=== PATIENT | male | born 1955 | race Caucasian/White ===

== ENCOUNTER → 2021-08-30 11:55 | Outpatient (BNVA) | payer MEDICARE, SELFPAY | PROVIDERS: PCP Nurse Practitioner Adult Health; Visit Provider Urology | DX: Z13.89 Encounter for screening for other disorder (principal) | CPT/HCPCS: Q3014 ==

== ENCOUNTER → 2023-02-07 14:38 | Outpatient (BNVA) | payer MEDICARE, MEDICAID, SELFPAY | PROVIDERS: PCP Nurse Practitioner Adult Health; Visit Provider Urology | DX: N52.01 Erectile dysfunction due to arterial insufficiency (principal); R39.15 Urgency of urination | CPT/HCPCS: 99212 ==

== ENCOUNTER 2024-11-12 10:16 | Outpatient (AMB) | payer MEDICARE, MEDICAID, SELFPAY ==
--- NOTE | 2024-11-12 10:20 | MHC.OFFVIS ---
Intake Visit Reasons: 1 yr follow up Intake Note: Patient is present for 1Y Follow up Current Urology Medication: Tadalafil ALLERGIES:NONE Blood Thinner: Apixaban ( Eliquis) Marketing Consultant Required: No Allergies No Known Allergies Allergy (Verified 11/12/24 10:21) HPI Comments Details: Alexis Root is a very pleasant male. He is a patient of Dr Dorman. He is seen in the office today for the following urologic conditions. - erectile dysfunction - urinary urgency and frequency Last seen 02/06/2023 New issue lower urinary tract symptoms Primarily urinary urge and frequency Has tried modifying diet Discussed bladder irritants Printed information provided Trial daily tadalafil Erectile dysfunction:? He presents today for?for continued evaluation and management of erectile dysfunction.? Symptoms have been present for/since?progressive.? Current treatment includes?Cialis/tadalafil - initially mail order from [facility], now through [facility] ? At this time he experiences erections?02/04 , are partial and adequate for vaginal penetration, that undergo rapid detumesence after penetration, HAKAN 8-11 Moderate ED.? Nocturnal erections?do not occur.? Currently they are?in a stable relationship.? Associated problems? hypertension ?Yes ? diabetes ?No ? dyslipidemia ?Yes ? Overall he is ?satisfied with the current management.? Therapeutic plan includes?continue dose of oral medication PFSH Medical History Abnormal heart rate Chronic cough Erectile dysfunction due to arterial insufficiency Urinary urgency Surgical History History of surgery Review of Systems Const Denies chills and Denies fever(s) Card Reports no additional complaints and Denies syncope Resp Denies cough GI Denies abdominal pain and Denies heartburn Reports as per HPI and Denies change in libido Neuro Denies syncope Psych Denies change in libido Endo Denies change in libido Physical Exam Const General: cooperative, healthy appearing, comfortable and no acute distress Orientation/consciousness: patient oriented x3 HEENT Face and sinus: Yes normal facial exam Mouth: moist mucous membranes Neck Neck: Yes normal visual inspection, Yes full ROM and Yes trachea midline Chest Chest palpation & inspection: normal inspection of the chest Resp Effort & Inspection: normal respiratory effort, able to speak in complete sentences and no respiratory distress GI Inspection: Yes normal to inspection Back/Spine/Pelvis Cervical Spine: normal cervical lordosis Thoracic/Lumbar Spine: thoracic and lumbar spine normal to inspection Skin General skin exam: no rashes or lesions noted Neuro General: patient oriented x3, gait normal, tone normal and moves all extremities Extrem General: Yes normal to inspection and Yes capillary refill normal Assessment & Plan Assessment & Plan (1) Erectile dysfunction due to arterial insufficiency: Code(s): N52.01 - Erectile dysfunction due to arterial insufficiency Category: Medical (2) Urinary urgency: Code(s): R39.15 - Urgency of urination Category: Medical Plan Three-month follow-up tele Medications: New tadalafil [facility] [id number] [id number] 5 mg PO DAILY 90 days 90 tabs 0RF Overactive bladder R39.15 - Urgency of urination Patient Instructions: Imaging studies, laboratory and physical exam results were discussed and reviewed in detail. No major barriers to patient understanding were identified. An opportunity to ask questions regarding the treatment plan was provided. All questions were answered. The patient expressed understanding and agreement with the above treatment plan. The patient is aware they should contact our office by phone for worsening of their current condition or the appearance of new urologic symptoms. Compliance is encouraged with any medications and followup testing that is ordered. It is a privilege to participate in the urologic care of your patient. If you have any questions or concerns regarding treatment for the above conditions, or other urologic issues, please do not hesitate to contact me. The office telephone contact is [phone]. This note is constructed using voice recognition software. While every effort has been made to ensure accuracy ham clerk errors may have been included. Yours sincerely, Dr Roger Hernandez MD, [facility] - Urology Providers of Expert, Compassionate Care for the Genitourinary System Coding Level of Care Code New Pt Level 4 (25467) Diagnoses Erectile dysfunction due to arterial insufficiency N52.01 Urinary urgency R39.15
== END 2024-11-12 11:49 | disposition home or self-care (01) ==
PROVIDERS: PCP Nurse Practitioner Adult Health; Visit Provider Urology
DX: N52.01 Erectile dysfunction due to arterial insufficiency (principal); R39.15 Urgency of urination
CPT/HCPCS: 99214

== ENCOUNTER → 2024-11-12 10:16 | Outpatient (BNVA) | payer MEDICARE, MEDICAID, SELFPAY | PROVIDERS: PCP Nurse Practitioner Adult Health; Visit Provider Urology | DX: N52.01 Erectile dysfunction due to arterial insufficiency (principal); R39.15 Urgency of urination | CPT/HCPCS: 99212 ==

== ENCOUNTER → 2025-02-09 13:49 | Outpatient (BNVA) | payer MEDICARE, MEDICAID, SELFPAY | PROVIDERS: PCP Nurse Practitioner Adult Health; Visit Provider Urology ==